=== PATIENT | female | born 1975 | race Caucasian/White ===

== ENCOUNTER 2019-11-12 08:08 | Emergency (ER) | payer SELFPAY ==
[2019-11-12 11:24] LABS: Basophils % (Auto) 0.5 % (0.0-1.8); Eosinophils # (Auto) 0.2 K/mm3 (0.0-0.4); Eosinophils % (Auto) 2.7 % (0.0-4.3); Hematocrit 33.3 % (30.3-42.9); Hemoglobin 11.5 gm/dl (10.1-14.3); Lymphocytes # (Auto) 2.9 K/mm3 (1.2-5.4); Lymphocytes % (Auto) 42.4 % (13.4-35.0); Mean Corpuscular HGB Conc 35 % (30-34); Mean Corpuscular Volume 79 fl (79-97); Monocytes # (Auto) 0.7 K/mm3 (0.0-0.8); Monocytes % (Auto) 10.5 % (0.0-7.3); Platelet Count 317 K/mm3 (140-440); Red Blood Count 4.21 M/mm3 (3.65-5.03); Red Cell Distribution Width 13.6 % (13.2-15.2)
[2019-11-12 12:13] LABS: Alanine Aminotransferase 19 units/L (7-56); Albumin 3.6 g/dL (3.9-5); BUN/Creatinine Ratio 37; Blood Urea Nitrogen 11 mg/dL (7-17); Calcium 9.1 mg/dL (8.4-10.2); Hemolysis Index 8
[2019-11-12] MEDS ORDERED: SODIUM CHLORIDE 0.9% 1000 ML 1,000 ML IV ONE (12:19)
[2019-11-12] MEDS ORDERED: POTASSIUM CHLORIDE ER 20 MEQ TAB PO ONE (12:19)
[2019-11-12] MEDS ORDERED: ACETAMINOPHEN 325 MG TAB PO ONE (12:19)
--- NOTE | 2019-11-12 12:22 | Ultrasound Report ---
ULTRASOUND OBSTETRIC INDICATION / CLINICAL INFORMATION: LNMP 4 months ago, lower abd pain. Clinical Gestational Age (GA): 13 weeks 0 days by last menstrual period TECHNIQUE: Transabdominal and Transvaginal. COMPARISON: None available. FINDINGS: GESTATIONAL SAC: Well-defined oval shape and intrauterine in location. No embryo or yolk sac is ident ified. Sac diameter of 1.2 cm corresponds to gestational age of 6 weeks 0 days. ADNEXA: No significant abnormality. A cyst on the right ovary measuring 3.4 cm in greatest dimension has low level internal echoes and may represent a hemorrhagic cyst. FREE FLUID: None. ADDITIONAL FINDINGS: None. IMPRESSION: Intrauterine cystic structure with appearance typical for a gestational sac is noted, but there is no identified yolk sac or pole. This potentially represents an early viable IUP, and correlation with serial measurement of beta-hCG is required, with repeat pelvic ultrasound as needed. Reportedly, the patient has a history of recent nonviable ; in that setting, the possibility of retained products of conception should also be considered. Close clinical follow-up is advised. Signer Name: Raheel Giron MD Signed: 11/12/2019 12:18 PM Workstation Name: [id number]
--- NOTE | 2019-11-12 12:22 | Emergency Department Report ---
ED Female HPI - General Chief complaint: Abdominal Pain Stated complaint: ABD PAIN Time Seen by Provider: 11/12/19 10:32 Source: patient Mode of arrival: Ambulatory Limitations: No Limitations - History of Present Illness Initial comments: Patient is a 44-year-old female presents emergency room with complaints of lower abdominal pain that began a month ago. Patient states that in September she was diagnosed with a threatened miscarriage in [place]. She states that she saw an [facility] [employer] at that time and had an ultrasound performed which showed an intrauterine gestational sac per patient but no activity. She states that she has not followed back up since September. She denies any urinary symptoms, nausea, vomiting, diarrhea, fever, vaginal discharge, vaginal bleeding, any other symptoms. She states her last normal menstrual cycle was 4 months ago. She has a past medical history of hypothyroidism. She denies any allergies medications. - Related Data Allergies Allergy/AdvReac Type Severity Reaction Status Date / Time No Known Allergies Allergy Unverified 11/12/19 08:13 ED Review of Systems ROS: Stated complaint: ABD PAIN Other details as noted in HPI Comment: All other systems reviewed and negative ED Past Medical Hx - Past Medical History Previous Medical History?: Yes Additional medical history: Miscarriage - Surgical History Past Surgical History?: Yes Additional Surgical History: D&C 2016 - Social History Smoking Status: Never Smoker Substance Use Type: Alcohol ED Physical Exam - General Limitations: No Limitations General appearance: alert, anxious - Head Head exam: Present: atraumatic, normocephalic - Eye Eye exam: Present: normal appearance - ENT ENT exam: Present: mucous membranes moist - Respiratory Respiratory exam: Present: normal lung sounds bilaterally. Absent: respiratory distress, wheezes, rales, rhonchi, stridor, chest wall tenderness, accessory muscle use, decreased breath sounds, prolonged expiratory - Cardiovascular Cardiovascular Exam: Present: regular rate, normal rhythm, normal heart sounds. Absent: systolic murmur, diastolic murmur, rubs, gallop - GI/Abdominal GI/Abdominal exam: Present: soft, normal bowel sounds. Absent: distended, tenderness, guarding, rebound, rigid - Neurological Exam Neurological exam: Present: alert, oriented X3 - Psychiatric Psychiatric exam: Present: normal affect, normal mood - Skin Skin exam: Present: warm, dry, intact ED Course Vital Signs 11/12/19 11/12/19 11/12/19 08:13 12:00 13:30 Temperature 97.9 F 97.7 F Pulse Rate 131 H 122 H Respiratory 20 15 17 Rate Blood Pressure 143/72 Blood Pressure 126/72 [Right] O2 Sat by Pulse 98 98 Oximetry ED Medical Decision Making - Lab Data Result diagrams: 11/12/19 10:56 11/12/19 10:56 Lab Results 11/12/19 11/12/19 11/12/19 Range/Units 10:56 10:56 10:56 WBC 6.9 (4.5-11.0) K/mm3 RBC 4.21 (3.65-5.03) M/mm3 Hgb 11.5 (10.1-14.3) gm/dl Hct 33.3 (30.3-42.9) % MCV 79 (79-97) fl MCH 27 L (28-32) pg MCHC 35 H (30-34) % RDW 13.6 (13.2-15.2) % Plt Count 317 (140-440) K/mm3 Lymph % (Auto) 42.4 H (13.4-35.0) % Craven % (Auto) 10.5 H (0.0-7.3) % Eos % (Auto) 2.7 (0.0-4.3) % Baso % (Auto) 0.5 (0.0-1.8) % Lymph # 2.9 (1.2-5.4) K/mm3 Craven # 0.7 (0.0-0.8) K/mm3 Eos # 0.2 (0.0-0.4) K/mm3 Baso # 0.0 (0.0-0.1) K/mm3 Seg Neutrophils % 43.9 (40.0-70.0) % Seg Neutrophils # 3.0 (1.8-7.7) K/mm3 Sodium 134 L (137-145) mmol/L Potassium 3.3 L (3.6-5.0) mmol/L Chloride 101.8 (98-107) mmol/L Carbon Dioxide 18 L (22-30) mmol/L Anion Gap 18 mmol/L BUN 11 (7-17) mg/dL Creatinine 0.3 L (0.7-1.2) mg/dL Estimated GFR > 60 ml/min BUN/Creatinine Ratio 37 % Glucose 124 H (65-100) mg/dL Calcium 9.1 (8.4-10.2) mg/dL Total Bilirubin 0.30 (0.1-1.2) mg/dL AST 22 (5-40) units/L ALT 19 (7-56) units/L Alkaline Phosphatase 191 H (35-129) units/L Total Protein 6.7 (6.3-8.2) g/dL Albumin 3.6 L (3.9-5) g/dL Albumin/Globulin Ratio 1.2 % HCG, Quant 26.83 H (0-4) mIU/mL Urine Color (Yellow) Urine Turbidity (Clear) Urine pH (5.0-7.0) Ur Specific [place] (1.003-1.030) Urine Protein (Negative) mg/dL Urine Glucose (UA) (Negative) mg/dL Urine Ketones (Negative) mg/dL Urine Blood (Negative) Urine Nitrite (Negative) Urine Bilirubin (Negative) Urine Urobilinogen (<2.0) mg/dL Ur Leukocyte Esterase (Negative) Urine WBC (Auto) (0.0-6.0) /HPF Urine RBC (Auto) (0.0-6.0) /HPF U Epithel Cells (Auto) (0-13.0) /HPF Urine Mucus /HPF 11/12/19 Range/Units 12:43 WBC (4.5-11.0) K/mm3 RBC (3.65-5.03) M/mm3 Hgb (10.1-14.3) gm/dl Hct (30.3-42.9) % MCV (79-97) fl MCH (28-32) pg MCHC (30-34) % RDW (13.2-15.2) % Plt Count (140-440) K/mm3 Lymph % (Auto) (13.4-35.0) % Craven % (Auto) (0.0-7.3) % Eos % (Auto) (0.0-4.3) % Baso % (Auto) (0.0-1.8) % Lymph # (1.2-5.4) K/mm3 Craven # (0.0-0.8) K/mm3 Eos # (0.0-0.4) K/mm3 Baso # (0.0-0.1) K/mm3 Seg Neutrophils % (40.0-70.0) % Seg Neutrophils # (1.8-7.7) K/mm3 Sodium (137-145) mmol/L Potassium (3.6-5.0) mmol/L Chloride (98-107) mmol/L Carbon Dioxide (22-30) mmol/L Anion Gap mmol/L BUN (7-17) mg/dL Creatinine (0.7-1.2) mg/dL Estimated GFR ml/min BUN/Creatinine Ratio % Glucose (65-100) mg/dL Calcium (8.4-10.2) mg/dL Total Bilirubin (0.1-1.2) mg/dL AST (5-40) units/L ALT (7-56) units/L Alkaline Phosphatase (35-129) units/L Total Protein (6.3-8.2) g/dL Albumin (3.9-5) g/dL Albumin/Globulin Ratio % HCG, Quant (0-4) mIU/mL Urine Color Yellow (Yellow) Urine Turbidity Clear (Clear) Urine pH 5.0 (5.0-7.0) Ur Specific [place] 1.020 (1.003-1.030) Urine Protein <15 mg/dl (Negative) mg/dL Urine Glucose (UA) Neg (Negative) mg/dL Urine Ketones Neg (Negative) mg/dL Urine Blood Sm (Negative) Urine Nitrite Neg (Negative) Urine Bilirubin Neg (Negative) Urine Urobilinogen 2.0 (<2.0) mg/dL Ur Leukocyte Esterase Tr (Negative) Urine WBC (Auto) 1.0 (0.0-6.0) /HPF Urine RBC (Auto) 3.0 (0.0-6.0) /HPF U Epithel Cells (Auto) 1.0 (0-13.0) /HPF Urine Mucus Few /HPF - Radiology Data Radiology results: report reviewed OB transvaginal US: Intrauterine cystic structure with appearance typical for gestational sac is noted, but there is no to the 5-year-old sac or pole. This potentially represents an early viable IUP, and correlation with serial measurement a beta- hCG is required, with repeat pelvic ultrasound as needed. Reportedly the patient has a history of recent nonviable ; in that setting, the possibility of retained product of conception chit also be considered. Close clinical follow-up is advised. - Medical Decision Making Patient is a 44-year-old female presents emergency room with complaints of lower abdominal pain that began a month ago. Patient states that in September she was diagnosed with a threatened miscarriage in [place]. She states that she saw an [employer] [employer] at that time and had an ultrasound performed which showed an intrauterine gestational sac per patient but no activity. She states that she has not followed back up since September. She denies any urinary symptoms, nausea, vomiting, diarrhea, fever, vaginal discharge, vaginal bleeding, any other symptoms. She states her last normal menstrual cycle was 4 months ago. She has a past medical history of hypothyroidism. She denies any allergies medications. vitals with elevated HR, otherwise stable, she states that she chronically has an elevated HR and believes it is secondary to her anxiety/thyroid. labs with mild dehydration and hypokalemia, pt given 1L of fluids and kdur. hcg quant is 26.83. OB US: Intrauterine cystic structure with appearance typical for gestational sac is noted, but there is no to the 5-year-old sac or pole. This potentially represents an early viable IUP, and correlation with serial measurement a beta-hCG is required, with repeat pelvic ultrasound as needed. Reportedly the patient has a history of recent nonviable ; in that setting, the possibility of retained product of conception chit also be considered. Close clinical follow-up is advised. Discussed case with Dr. Lubin who recommended outpatient [facility] [employer] [facility] follow-up and repeat hCG Quant in 2 days, states patient can be discharged home to follow up. discussed all results with patient and patient given ultrasound report to take to [facility] [employer] [facility]. advised pt You need to have a repeat beta hCG Quant in 2 days. Today your hCG Quant is 26. may take tylenol as needed for discomfort. increase your water intake. you may return to the emergency room to have this repeated or be seen by an [employer]. you also need to have repeat ultrasound. Follow-up with a [facility] in the next 2-3 days. Return to the emergency room immediately for any new or worsening symptoms. pt also given primary care doctors to follow up with to have a thyroid panel performed and to adjust her medication as appropriate. - Differential Diagnosis IUP, ectopic, miscarriage, retained products of conception, cyst Critical care attestation.: If time is entered above; I have spent that time in minutes in the direct care of this critically ill patient, excluding procedure time. ED Disposition Clinical Impression: Suprapubic abdominal pain, Threatened miscarriage, Right ovarian cyst Disposition: TO HOME OR SELFCARE Is pt being admited?: No Does the pt Need Aspirin: No Condition: Stable Instructions: Threatened Miscarriage (ED) Additional Instructions: You need to have a repeat beta hCG Quant in 2 days. Today your hCG Quant is 26. may take tylenol as needed for discomfort. increase your water intake. you may return to the emergency room to have this repeated or be seen by an [employer]. you also need to have repeat ultrasound. Follow-up with a [employer] in the next 2-3 days. Return to the emergency room immediately for any new or worsening symptoms. Referrals: [facility] [Provider Group] - 2-3 Days [facility] [Provider Group] - 2-3 Days [facility] [Provider Group] - 2-3 Days [facility] [Outside] - 2-3 Days Time of Disposition: 13:07 Print Language: VENEZUELAN
[2019-11-12 12:53] LABS: Bilirubin,Urine NEG (Negative); Blood,Urine SM (Negative); Color,Urine Yellow (Yellow); Mucus,Urine FEW /HPF; Protein,Urine <15 mg/dL mg/dL (Negative)
[2019-11-12 13:31] VITALS: BP 126/72
== END 2019-11-12 13:50 | disposition home or self-care (01) ==
LOC: ED 08:08
DX: O20.0 Threatened abortion (principal); O34.81 Maternal care for other abnormalities of pelvic organs, first trimester; N83.201 Unspecified ovarian cyst, right side; Z3A.01 Less than 8 weeks gestation of pregnancy
CPT/HCPCS: 36415; 76801; 76817; 80053; 81001; 84702; 85025; 99284; J7030